=== PATIENT | female | born 1970 | race Caucasian/White ===

== ENCOUNTER 2017-09-18 11:09 | Emergency (ER) | payer SELFPAY ==
[2017-09-18] MEDS ORDERED: Ketorolac Tromethamine 30 MG/ML VIAL ONE (11:33)
[2017-09-18] MEDS ORDERED: Ondansetron HCl/PF 4 MG/2 ML Vial ONE (11:33)
[2017-09-18 11:57] LABS: ALT (SGPT) 32 U/L (8-55); AST (SGOT) 19 U/L (5-34); Albumin 4.5 g/dL (3.5-5.0); Alkaline Phosphatase 94 U/L (40-150); Anion Gap 15 mmol/L (10-20); BUN (Urea Nitrogen) 11 mg/dL (7.0-18.7); Bilirubin, Total 0.5 mg/dL (0.2-1.2); Calc. Creatinine Clearance 0 mL/min (70-130); Calcium 9.7 mg/dL (7.8-10.44); Carbon Dioxide 23 mmol/L (22-29); Chloride 103 mmol/L (98-107); Estimated GFR-MDRD 82; Globulin 3.7 g/dL (2.4-3.5); Glucose 138 mg/dL (70-105); Lipase 10 U/L (8-78); Potassium 3.4 mmol/L (3.5-5.1); Protein, Total 8.2 g/dL (6.0-8.3); Sodium 138 mmol/L (136-145)
[2017-09-18 12:01] LABS: #Monocytes 0.3 thou/uL (0.11-0.59); #Neutrophils 7.8 thou/uL (1.40-6.50); %Basophils 0.5 % (0.0-1.0); %Lymphocytes 10.9 % (21.0-51.0); %Monocytes 2.8 % (0.0-10.0); %Neutrophils 85.8 % (42.0-75.0); Band 13 % (5-11); Hemoglobin 13.9 g/dL (12.0-16.0); Lymphocytes 17 % (21-51); MDiff Complete? YES; Mean Corpuscular HGB CONC 36.5 g/dL (32.0-36.0); Mean Corpuscular Hemoglobin 28.8 pg (27.0-31.0); Mean Corpuscular Volume 78.9 fL (78.0-98.0); Mean Platelet Volume 6.3 fL (7.4-10.4); Monocytes 2 % (0-10); Neutrophil 68 % (42-75); Platelet Count 308 thou/uL (130-400); Red Blood Cell (RBC) Count 4.83 mill/uL (4.20-5.40); White Blood Cell (WBC) Count 9.1 thou/uL (4.8-10.8)
== END 2017-09-18 13:21 | disposition home or self-care (01) ==
LOC: BURERS 11:09
DX: A08.4 Viral intestinal infection, unspecified (principal); G43.909 Migraine, unspecified, not intractable, without status migrainosus; Z79.899 Other long term (current) drug therapy
CPT/HCPCS: 80053; 83605; 83690; 85025; 87040; 96361; 96372; 96374; 96375; J1885; J2405

== ENCOUNTER 2017-09-20 19:30 | Emergency (ER) | payer SELFPAY ==
[2017-09-20] MEDS ORDERED: Ondansetron HCl/PF 4 MG/2 ML Vial ONE (20:05)
[2017-09-20] MEDS ORDERED: Dicyclomine 20 MG TAB ONE (20:05)
[2017-09-20 20:27] LABS: ALT (SGPT) 37 U/L (8-55); AST (SGOT) 17 U/L (5-34); Albumin 3.8 g/dL (3.5-5.0); Alkaline Phosphatase 121 U/L (40-150); Anion Gap 15 mmol/L (10-20); BUN (Urea Nitrogen) 8 mg/dL (7.0-18.7); Bilirubin, Total 0.6 mg/dL (0.2-1.2); CK (CPK) 76 U/L (29-168); Calc. Creatinine Clearance 0 mL/min (70-130); Calcium 9.2 mg/dL (7.8-10.44); Carbon Dioxide 25 mmol/L (22-29); Chloride 102 mmol/L (98-107); Estimated GFR-MDRD 87; Globulin 3.4 g/dL (2.4-3.5); Glucose 127 mg/dL (70-105); Lipase 10 U/L (8-78); Protein, Total 7.2 g/dL (6.0-8.3); Sodium 139 mmol/L (136-145)
[2017-09-20 20:33] LABS: #Basophils 0.1 thou/uL (0.0-0.2); #Eosinphils 0.1 thou/uL (0.0-0.7); #Lymphocytes 1.7 thou/uL (1.20-3.40); #Monocytes 0.9 thou/uL (0.11-0.59); #Neutrophils 5.5 thou/uL (1.40-6.50); %Basophils 1.3 % (0.0-1.0); %Eosinophils 0.7 % (0.0-10.0); %Lymphocytes 20.1 % (21.0-51.0); %Monocytes 10.9 % (0.0-10.0); Mean Corpuscular HGB CONC 37.1 g/dL (32.0-36.0); Mean Corpuscular Hemoglobin 29.1 pg (27.0-31.0); Mean Corpuscular Volume 78.4 fL (78.0-98.0); Mean Platelet Volume 6.2 fL (7.4-10.4); Platelet Count 294 thou/uL (130-400); RBC Distribution Width 10.8 % (11.5-14.5); Red Blood Cell (RBC) Count 4.11 mill/uL (4.20-5.40); White Blood Cell (WBC) Count 8.2 thou/uL (4.8-10.8)
[2017-09-20 20:36] LABS: MDiff Complete? YES
[2017-09-20 20:38] LABS: Potassium 2.9 mmol/L (3.5-5.1)
[2017-09-20] MEDS ORDERED: Potassium Chloride 20 MEQ TAB ONE (21:01)
[2017-09-20] MEDS ORDERED: Potassium Chloride 20 MEQ/100 ML PREMIX BAG ONE (21:01)
[2017-09-20] MEDS ORDERED: Acetaminophen 325 MG TAB ONE (21:12)
--- NOTE | 2017-09-20 22:35 | CT ---
CT ABDOMEN AND PELVIS WITHOUT CONTRAST 09/20/[address] of the abdomen and pelvis was done using no oral or IV contrast. Axial slices were acquired , then coronal and sagittal reconstructions were done. The lung bases are clear. There are a few tiny subcentimeter nodules in the lungs bilaterally. None a re more than 2 or 3 mm in size. The significance is unknown but could be watched on future films in 6 to 12 months. The liver, spleen, pancreas, adrenal glands, kidneys, and abdominal aorta all appeared normal. There has been a prior cholecystectomy. A calcification or metallic area is seen in the live r, but is of no real consequence. The bowel shows no distention to suggest obstruction. There may be some slight thickening of the de souza sverse colon wall, at most. There is no sign of appendicitis or diverticulitis. No free air or free f luid was present. There were a few lymph nodes seen scattered throughout the mesentery. The largest n ear the cecal area measures 1.3 cm, but the total number is really not excessive or enough to diagnos e mesenteric adenitis. CT of the pelvis showed no pelvic masses, fluid collections, or inflammatory changes. An incidental f inding is mild lumbar scoliosis, convexed left. There is some mild generalized bulging of the L4-L5 d isc along with slight ligamentous and facet hypertrophy here. IMPRESSION: 1. No definite acute findings. At most, minimal thickening of the transverse colon which is nons pecific. 2. Minimal scarring of the left base. Two or three tiny subcentimeter nodules of questionable si gnificance in the lung bases. POS: HOME
== END 2017-09-20 22:38 | disposition home or self-care (01) ==
LOC: BURERS 19:30
DX: K52.9 Noninfective gastroenteritis and colitis, unspecified (principal); E87.6 Hypokalemia; G43.909 Migraine, unspecified, not intractable, without status migrainosus; Z79.899 Other long term (current) drug therapy
CPT/HCPCS: 74176; 80053; 82550; 83605; 83690; 85025; 93005; 96361; 96365; 96375; J2405; J3480